=== PATIENT | female | born 1985 | race Caucasian/White ===

== ENCOUNTER 2021-06-24 10:28 | Emergency (ER) | payer BC, SELFPAY ==
[2021-06-24 10:40] VITALS: BP 101/62; PULSE 86; RESP 18; TEMP 36.7; O2SAT 99
--- NOTE | 2021-06-24 11:40 | ED.URI ---
HPI - URI/Sore Throat General Chief Complaint: Upper Respiratory Infection Stated Complaint: sinus issues Source: patient Mode of arrival: ambulatory Limitations: no limitations History of Present Illness HPI Narrative: Patient is a 36-year-old female who presents complaining of nasal congestion, headache and sore throat x1 day. Patient is 34 weeks . Patient reports taking Tylenol for headache without relief. She reports Covid vaccinated x2. She denies known exposure to Covid. She denies fever, chills or body aches. She denies chest pain, cough or shortness of breath. She denies all other complaints at this time. Related Data Home Medications Medication Instructions Recorded Confirmed aspirin [Adult Low Dose Aspirin] 81 mg PO DAILY 06/24/21 06/24/21 buspirone 7.5 mg PO BID 06/24/21 06/24/21 ferrous sulfate 325 mg PO DAILY 06/24/21 06/24/21 [id number] 1 tablet PO DAILY 06/24/21 06/24/21 [] Allergies Allergy/AdvReac Type Severity Reaction Status Date / Time No Known Allergies Allergy Verified 06/24/21 11:06 Review of Systems Review of Systems: CONSTITUTIONAL: Denies fever, chills, or sweats. EYES: Denies visual changes, redness, or discharge. ENT: Reports congestion and sore throat CARDIOVASCULAR: Denies chest pain, palpitations, or edema. RESPIRATORY: Denies cough or dyspnea. GASTROINTESTINAL: Denies abdominal pain, nausea, vomiting, or diarrhea. GENITOURINARY: Denies dysuria or hematuria. SKIN: Denies rash or itching. MUSCULOSKELETAL: Denies back pain, joint pain, or myalgia. NEUROLOGIC: Reports headache, denies numbness, dizziness, or weakness. PSYCHIATRIC: Denies anxiety or depression. REPLACED BY [facility] Social History Social History Smoking status: Never smoker Second hand tobacco smoke exposure: No Alcohol intake: current Substance use: never Substance use type: does not use Gender identity (if verbalized by the patient): Female Sexual Orientation (if Verbalized by the Patient): Straight or Heterosexual Comments At the time of signature, I have reviewed and agree with nursing past medical, surgical, social, and family history unless otherwise noted. Please see nursing chart for further information. There is no relevant family history pertinent to the presenting complaint. Exam Narrative: GENERAL: Well-appearing, well-nourished, and in no acute distress. HEAD: Normocephalic, atraumatic. EYES: EOMI. No redness or drainage. Conjunctiva are normal. ENT: Mucous membranes pink and moist. Nares mild erythema and fullness. No rhinorrhea. TMs full bilaterally. Throat mild erythema. Uvula midline. NECK: AROM. Supple. No lymphadenopathy. CHEST: No respiratory distress. HEART: Regular rate and rhythm. EXTREMITIES: Normal range of motion. SKIN: Warm, dry, no rash. NEURO: No focal deficits. Alert and oriented x3. Gait steady. PSYCH: Normal affect. No signs of depression or anxiety. Course Vital Signs Vital signs: Vital Signs Temperature 36.7 C 06/24/21 10:40 Pulse Rate 86 06/24/21 10:40 Respiratory Rate 18 06/24/21 10:40 Blood Pressure 101/62 06/24/21 10:40 Pulse Oximetry 99 06/24/21 10:40 Temperature 36.7 C 06/24/21 10:40 Pulse Rate 86 06/24/21 10:40 Respiratory Rate 18 06/24/21 10:40 Blood Pressure 101/62 06/24/21 10:40 Pulse Oximetry 99 06/24/21 10:40 Reviewed MDM - URI/Sore Throat MDM Narrative Medical decision making narrative: Rapid Covid negative. Discussed with patient signs and symptoms that warrant further testing and treatment. Discussed with patient most likely sinusitis. Also discussed congestion can be part of . Discussed safe [id number] medications to use while . Discussed use of Tylenol for headache. Patient agrees with plan of care. Patient is stable for discharge to home with outpatient follow-up as discussed. Differential Diagnosis D
== END 2021-06-24 11:51 | disposition home or self-care (01) ==
PROVIDERS: Emergency Provider Nurse Practitioner; PCP Family Medicine
DX: O26.893 Other specified pregnancy related conditions, third trimester (principal); J32.9 Chronic sinusitis, unspecified; Z3A.34 34 weeks gestation of pregnancy; Z79.82 Long term (current) use of aspirin
CPT/HCPCS: 87426; 99213; C9803; G0463

== ENCOUNTER 2021-08-01 06:41 | Inpatient (IN) | payer BC, SELFPAY ==
[2021-08-01] VITALS (130 sets, daily range): BP systolic 89–130; BP diastolic 29–89; PULSE 66–107; RESP 18–20; TEMP 36.7–37.3; O2SAT 97–100; BMI 29.0
[2021-08-01 07:37] LABS: Basophils Percent Auto 0.3 % (0.2-1.2); Eosinophils Absolute Auto 0.1 K/mm3 (0-0.3); Eosinophils Percent Auto 1.3 % (0-4.4); Hematocrit 37.1 % (37.0-47.0); Hemoglobin 12.3 g/dL (12.0-15.0); Immature Granulocyte Absolute 0.06 K/mm3 (0.00-0.031); Immature Granulocyte Percent A 0.8 % (0-0.5); Lymphocytes Absolute Auto 1.46 K/mm3 (0.9-3.2); Lymphocytes Percent Auto 18.9 % (18.3-44.2); Mean Corpuscular HGB Conc 33.2 g/dl (32-36); Mean Corpuscular Hemoglobin 30.1 pg (26-34); Mean Corpuscular Volume 90.9 fl (80-100); Mean Platelet Volume 11.9 fl (7.4-10.4); Monocytes Absolute Auto 0.4 K/mm3 (0.1-0.6); Monocytes Percent Auto 4.5 % (2.6-8.5); Neutrophils Absolute Auto 5.7 K/mm3 (1.3-6.7); Neutrophils Percent Auto 74.2 % (45.5-73.1); Platelet Count Result 160 k/mm3 (150-375); Red Blood Count 4.08 M/mm3 (4.2-5.4); Red Cell Distribution Width 13.4 % (11.5-14.5); White Blood Count 7.7 K/mm3 (4.5-10.0)
--- NOTE | 2021-08-01 07:39 | WPDOBADMIT ---
Obstetrics - Admit Note Admission Note: record reviewed. No pertinent additions to the history and/or any subsequent changes in the physical findings that are not consistent with the expected course of the were found. IOL 39 weeks gestation, vertex by bedside US Additions to the history and/or subsequent changes in the physical findings follow. None.
[2021-08-01] MEDS: LACTATED RINGERS 1,000 ML 125 ML IV CONT ×3 (07:40→12:56)
[2021-08-01] MEDS: OXYTOCIN 30 UNITS/NS 500 ML 30 UNITS/500 ML BAG IV CONT (07:41)
--- NOTE | 2021-08-01 07:49 | LDADM ---
This patient, Lore Quintanilla, was admitted to Labor/Delivery/Recovery 103 on 08/01/21 at 06:41. Plans for labor, pain management and were discussed with patient. Patient/family oriented to hospital policies and general routines including ID bracelet, bed and alarms, visiting hours, pain management, procedures, bathroom and other care routines, personal items, smoking policy, room service/diet and guest tray routines, infant security routines, and visiting hours. Patient/Family are encouraged to report perceived risks to care and to ask questions if they do not understand what they are told or what they should do. See OBIX for further documentation.
--- NOTE | 2021-08-01 11:59 | WPDANESEPP ---
Anes - Eval Pre Procedure Procedure: labor pain management Date/Time: 08/01/21 11:59 Surgeon: Grace Preop Diagnosis: pain during labor Pre Op Diagnosis: Induction of Labor Patient Data Age: 36 Gender: F Height: 1.6 m Weight: 74.2 kg Last Vital Signs Temp 99.2 F 08/01/21 11:30 Pulse 81 08/01/21 11:43 BP 123/67 08/01/21 11:43 Allergies Allergy/AdvReac Type Severity Reaction Status Date / Time No Known Allergies Allergy Verified 06/24/21 11:06 Home Medications Medication Instructions Recorded Confirmed Type aspirin [Adult Low Dose Aspirin] 81 mg PO DAILY 06/24/21 07/07/21 History buspirone 7.5 mg PO BID 06/24/21 07/07/21 History ferrous sulfate 325 mg PO DAILY 06/24/21 07/07/21 History [id number] 1 tablet PO DAILY 06/24/21 07/07/21 History [] fluoxetine 10 mg PO DAILY 07/07/21 07/07/21 History magnesium 1 tablet PO DAILY 08/01/21 08/01/21 History Laboratory Tests 08/01/21 08/01/21 08/01/21 07:22 07:22 07:22 WBC 7.7 K/mm3 K/mm3 (4.5-10.0) RBC 4.08 M/mm3 L M/mm3 (4.2-5.4) Hgb 12.3 g/dL g/dL (12.0-15.0) Hct 37.1 % % (37.0-47.0) MCV 90.9 fl fl (80-100) MCH 30.1 pg pg (26-34) MCHC 33.2 g/dl g/dl (32-36) RDW 13.4 % % (11.5-14.5) Plt Count 160 k/mm3 k/mm3 (150-375) MPV 11.9 fl H fl (7.4-10.4) Immature Gran % (Auto) 0.8 % H % (0-0.5) Neut % (Auto) 74.2 % H % (45.5-73.1) Lymph % (Auto) 18.9 % % (18.3-44.2) [place] % (Auto) 4.5 % % (2.6-8.5) Eos % (Auto) 1.3 % % (0-4.4) Baso % (Auto) 0.3 % % (0.2-1.2) Lymph # (Auto) 1.46 K/mm3 K/mm3 (0.9-3.2) [place] # (Auto) 0.4 K/mm3 K/mm3 (0.1-0.6) Eos # (Auto) 0.1 K/mm3 K/mm3 (0-0.3) Baso # (Auto) 0.0 K/mm3 K/mm3 (0.0-0.1) Abs Immat Gran (auto) 0.06 K/mm3 H K/mm3 (0.00-0.031) Absolute Neuts (auto) 5.7 K/mm3 K/mm3 (1.3-6.7) Absolute Nucleated RBC 0.0 K/mm3 K/mm3 (0.0-0.012) Nucleated RBC % 0.0 % % (0.0-0.2) RPR Pending Blood Type B Positive Antibody Screen Negative : gestational age (edc 08/07/21) Patient hx anesthesia problems: none Family hx anesthesia problems: none Results Review: All pre-operative results and documents have been reviewed as part of the pre-operative evaluation. [facility] Past Medical History Medical History Pain during labor Family History Family History Other No pertinent family history Social History Social History Smoking status: Never smoker Second hand tobacco smoke exposure: No Alcohol intake: current Substance use: never Substance use type: does not use Gender identity (if verbalized by the patient): Female Sexual Orientation (if Verbalized by the Patient): Straight or Heterosexual Spiritual care concerns: No Exam Day of Procedure 08/01/21 11:59
[2021-08-01] MEDS: ONDANSETRON INJ 4 MG/2 ML VIAL IV PUSH (14:05)
--- NOTE | 2021-08-01 18:26 | PM.OBPRVD ---
OB - Delivery Note Procedure Delivery date: 08/01/21 Procedure: vaginal delivery Intrapartal events: None Induction method: AROM and per pitocin protocol Delivery monitor: external FHT and external uterine Route of delivery: Laceration Description: None Delivery repair: vicryl Specimen: No Quantitative Blood Loss (ml): 215 Anesthesia type: Epidural Disposition: floor [place] Baby Date of : 08/01/21 Time of : 18:11 Weeks of gestation at delivery: 39 Infant gender: Male Weight (pounds): 7 Weight (ounces): 14 presentation: vertex position: Left Occiput Anterior Placenta delivery description: Spontaneous cord vessel description: 3 Vessels, Clamped/Cut, Around Body x1 and Delayed Cord Clamping score one minute: 7 score five minutes: 9 Narrative: mother and baby skin to skin in stable condition
[2021-08-01] MEDS: OXYTOCIN 30 UNITS/NS 500 ML 30 UNITS/500 ML BAG 125 UNITS IV CONT (18:44)
[2021-08-01] MEDS: IBUPROFEN 600 MG TABLET PO (18:45)
[2021-08-01] MEDS: BENZOCAINE 20% AER SPR (*SP) 56 GM CAN 1 SPRAY TOPICAL (18:45)
[2021-08-01] MEDS: WITCH HAZEL 40 PADS 1 PAD TOPICAL (18:45)
--- NOTE | 2021-08-01 20:43 | OBPPTRN ---
Patient transferred to post room #288 via wheelchair. Support person present. Oriented to unit, room, information board, rooming in, admission packet and security measures. Patient verbalizes understanding.
[2021-08-02 00:50] VITALS: BP 103/63; PULSE 75; RESP 18; TEMP 36.6
[2021-08-02] MEDS: IBUPROFEN 600 MG TABLET PO ×4 (00:52→19:46)
[2021-08-02] MEDS: ACETAMINOPHEN 325 MG TABLET 650 MG PO ×4 (00:53→19:47)
[2021-08-02 04:15] VITALS: BP 122/74; PULSE 67; RESP 18; TEMP 36.6
[2021-08-02 06:57] LABS: Rapid Plasma Reagin Non-Reactive (NonReactive)
[2021-08-02] MEDS: DOCUSATE SODIUM 100 MG CAPSULE PO (07:48)
--- NOTE | 2021-08-02 07:52 | P.PNOB_ITS ---
OB - PN: Subj Subjective Date/time seen: 08/02/21 07:52 Patient comments: no complaints baby status: doing well OB - PN: Obj Data Labs CBC & Chem 7: 08/02/21 03:37 Labs: Laboratory Results - last 24 hr 08/01/21 08/01/21 08/02/21 07:22 07:22 03:37 Hgb 10.0 L Hct 31.0 L RPR Non-reactive Blood Type B Positive Antibody Screen Negative OB - PN A/P Plan day: 1 Plan: routine care Time Spent With Patient Time: Total time spent is greater than 50% in coordination of care (as documented) at patient's floor/unit and/or counseling patient: Time with patient: less than 15 minutes Review of Systems Review of Systems: All systems reviewed & are unremarkable except as noted in HPI and below Exam Narrative: Fundus firm and vaginal flow controlled. No lower ext redness, wa rmth, or edema. Negative homans. Const: General: comfortable Chest: Breast/axilla inspection: normal inspection of the breasts Resp: Effort & Inspection: normal respiratory effort Cardio: Rate: regular rate GI: GI Palp: Yes Soft to palpation Psych: Appearance: grossly normal Affect: normal affect Attitude: cooperative Thought content: Yes Normal thought content present Judgement: Good judgement present (Psych)
[2021-08-02 09:10] VITALS: BP 111/65; PULSE 78; RESP 18; TEMP 36.8; O2SAT 100
[2021-08-02 13:00] VITALS: BP 123/79; PULSE 72; RESP 18; TEMP 37.2; O2SAT 99
--- NOTE | 2021-08-02 15:01 | WPDANLDPN2 ---
Anes-Prog Note L&D Date/Time: 08/02/21 15:01 Comfortable throughout: labor and delivery Neuraxial method: epidural Epidural/Spinal procedure site: clean & non-tender Neuro status: Neuro function grossly intact. Cardiovascular status: normal Respiratory status: normal Airway patency: baseline Mental status: baseline Post-Op hydration status: normal Vital Signs: Last Vital Signs Temp 37.2 C 08/02/21 13:00 Pulse 72 08/02/21 13:00 Resp 18 08/02/21 13:00 BP 123/79 08/02/21 13:00 Pulse Ox 99 08/02/21 13:00 Pain score (VAS): 10/15 I/O: Intake & Output 08/01/21 08/02/21 08/02/21 23:59 07:59 15:59 Intake Total 1900 500 240 Output Total 751 Balance 1149 500 240 Post-procedural complaints: none Patient feedback: Patient satisfied with anesthetic care.
[2021-08-02 17:00] VITALS: BP 121/61; PULSE 76; RESP 18; TEMP 37.1; O2SAT 98
[2021-08-02 19:40] VITALS: BP 113/69; PULSE 75; RESP 16; TEMP 36.9; O2SAT 97
[2021-08-02] MEDS: WITCH HAZEL 40 PADS 1 PAD TOPICAL (21:22)
[2021-08-03] MEDS: ACETAMINOPHEN 325 MG TABLET 650 MG PO (04:45)
[2021-08-03] MEDS: IBUPROFEN 600 MG TABLET PO ×2 (04:46→11:25)
--- NOTE | 2021-08-03 07:35 | PM.OBPNVD ---
OB - PN: Subj Subjective Date/time seen: 08/03/21 07:35 Patient comments: no complaints baby status: doing well OB - PN: Obj Data Labs CBC & Chem 7: 08/02/21 03:37 OB - PN A/P Plan day: 2 Plan: routine care and discharge home Time Spent With Patient Time: Total time spent is greater than 50% in coordination of care (as documented) at patient's floor/unit and/or counseling patient: Review of Systems Review of Systems: All systems reviewed & are unremarkable except as noted in HPI and below Exam Const: General: cooperative Nutritional Appearance: average body habitus Psych: Thought process: Normal thought process present Thought content: Yes Normal thought content present Insight: Good insight present (Psych)
--- NOTE | 2021-08-03 07:38 | P.DS_ITS ---
DS: Admitting Diagnosis Discharge Date 08/03/21 Admitting Diagnosis IOL OB - DS: Summary OB Procedures : None OB Procedures Intrapartum: Spontaneous Vag Delivery OB Procedures: : None Time Spent with Patient Time attestation: Total time spent providing and/or coordinating discharge services: Discharge Plan Discharge Attending physician on discharge: Suzanne Edwards Discharging Clinician: Rosalba Ruiz Patient Disposition: Home, Self-Care Activity: pelvic rest Diet: regular Patient Instructions: Antibiotic Form Stand Alone Forms: General Discharge Information Follow-up/Referrals: Rosalba Ruiz CNM [Certified Nurse Computer Technician] - 4 Weeks Discharge Medications: Continued 1 mg Tablet 1 tablet PO DAILY RF: 0 buspirone 15 mg tablet 7.5 mg PO BID RF: 0 fluoxetine 10 mg Tablet 10 mg PO DAILY RF: 0 Discontinued Adult Low Dose Aspirin 81 mg Tablet 81 mg PO DAILY RF: 0 ferrous sulfate 325 mg (65 mg iron) Tablet,Delayed Release (Dr/Ec) 325 mg PO DAILY RF: 0 magnesium Tablet 1 tablet PO DAILY RF: 0 Date of admission: 08/01/21 06:41 Primary Care Provider: Skyler Moncada Admitting Provider: Suzanne Edwards Attending physician on admission: Suzanne Edwards Condition: Stable
[2021-08-03 08:15] VITALS: BP 125/80; PULSE 65; RESP 18; TEMP 37.4; O2SAT 98
[2021-08-03] MEDS: DOCUSATE SODIUM 100 MG CAPSULE PO (11:25)
[2021-08-06 11:21] VITALS: BP 111/72; PULSE 75; RESP 20; TEMP 37; O2SAT 100
== END 2021-08-03 12:40 | disposition home or self-care (01) | DRG 807 ==
LOC: ANHLDR 06:45 → ANHOB2 20:53
PROVIDERS: Advanced Practice Midwife; Admitting Provider Obstetrics & Gynecology; PCP Family Medicine; Visit Provider Obstetrics & Gynecology
DX: O13.4 Gestational [pregnancy-induced] hypertension without significant proteinuria, complicating childbirth (principal); Z37.0 Single live birth; O69.2XX0 Labor and delivery complicated by other cord entanglement, with compression, not applicable or unspecified; O76 Abnormality in fetal heart rate and rhythm complicating labor and delivery; Z3A.39 39 weeks gestation of pregnancy
CPT/HCPCS: 36415; 85014; 85018; 85025; 86592; 86850; 86900; 86901; A9270; J2405; J2590; J2795; J7120

== ENCOUNTER 2022-02-08 00:36 | Day surgery (SDC) | payer BC, SELFPAY ==
[2022-01-23 10:17] VITALS: BMI 25.4
[2022-02-08 07:44] VITALS: BP 102/73; PULSE 78; RESP 17; TEMP 36.3; O2SAT 100
[2022-02-08] MEDS: LACTATED RINGERS 1,000 ML 150 ML IV CONT (07:55)
--- NOTE | 2022-02-08 08:10 | WPDANESEPPF ---
Anes - Initial Pre Proc Eval Procedure: Operation Date: 02/08/22 08:30 Proposed Procedures p Colonoscopy - Holden Castaneda MD Date/Time: 02/08/22 08:10 Surgeon: Holden Castaneda MD Pre Op Diagnosis: rectal bleed Patient Data Age: 36 Gender: F Height: 1.6 m Weight: 65.3 kg Last Vital Signs Temp 36.3 C L 02/08/22 07:44 Pulse 78 02/08/22 07:44 Resp 17 02/08/22 07:44 BP 102/73 02/08/22 07:44 Pulse Ox 100 02/08/22 07:44 Allergies Allergy/AdvReac Type Severity Reaction Status Date / Time No Known Allergies Allergy Verified 02/08/22 07:43 Home Medications Medication Instructions Recorded Confirmed Type buspirone 7.5 mg PO BID 06/24/21 01/23/22 History fluoxetine 40 mg PO DAILY 07/07/21 01/23/22 History sulfamethoxazole-trimethoprim 1 tablet PO DAILY 01/23/22 01/23/22 History Patient hx anesthesia problems: none Family hx anesthesia problems: none Results Review: All pre-operative results and documents have been reviewed as part of the pre-operative evaluation. PMFSH Past Medical History Medical History Anxiety Depression Family History Family History Other No pertinent family history Social History Social History Smoking status: Never smoker Second hand tobacco smoke exposure: No Alcohol intake: current Substance use: never Substance use type: does not use Living arrangements: with family Gender identity (if verbalized by the patient): Female Sexual Orientation (if Verbalized by the Patient): Straight or Heterosexual Spiritual care concerns: No Anes - Eval Final PreProcedure Day of Procedure 02/08/22 08:10 Patient weight: normal Heart: regular rate and rhythm Lungs: clear to auscultation Airway: Mallampati scale class II Neurological: alert and oriented Last oral intake: >/= 8 hours ASA classification: II Emergent: no Anesthetic plan: proceed Anesthesia type and monitoring: general GIVS and standard monitoring Results Review: All pre-operative results and documents have been reviewed as part of the pre-operative evaluation. Informed Consent: The patient's anesthetic plan and its attendant risks and benefits were discussed with the patient/family/POA. Questions were solicited and answers provided to the satisfaction of the patient/family/POA.
--- NOTE | 2022-02-08 08:15 | PM.HPGS ---
History of Present Illness History of Present Illness Consent: Risks, benefits, and alternatives have been discussed and questions answered. Patient agrees to proceed with procedure. Chief complaint: rectal bleed Narrative: Lore Quintanilla is a 36 year old female with intermittent rectal bleeding, never had colonoscopy Review of Systems Constitutional: Constitutional: Denies headache(s) and Denies weakness Eyes: Eyes: Denies blurry vision ENT: Reports Normal hearing present, Denies headache(s) and Denies neck pain Cardiovascular: Cardiovascular: Denies chest pain and Denies dyspnea Respiratory: Respiratory: Denies dyspnea Gastrointestinal: Gastrointestinal: Reports no additional gastrointestinal complaints Genitourinary: Genitourinary: Denies dysuria Musculoskeletal: Musculoskeletal: Denies neck pain Integumentary/Breasts: Skin/Breast: Denies dry skin Neurologic: Reports Normal hearing present, Denies headache(s) and Denies weakness Psychiatric: Psychiatric: Denies anxiety Endocrine: Endocrine: Denies change in body appearance Hematologic/Lymphatic: Hematologic/Lymphatic: Denies easy bleeding Allergic/Immunologic: Allergic/Immunologic: Denies urticaria PMFSH Past Medical History Medical History (Updated 02/08/22 @ 08:15 by Holden Castaneda MD) Anxiety Blood in stool Depression Family History Family History Other No pertinent family history Social History Social History Smoking status: Never smoker Second hand tobacco smoke exposure: No Alcohol intake: current Substance use: never Substance use type: does not use Living arrangements: with family Gender identity (if verbalized by the patient): Female Sexual Orientation (if Verbalized by the Patient): Straight or Heterosexual Spiritual care concerns: No Meds Home Medications and Allergies Home Medications Medication Instructions Recorded Confirmed Type buspirone 7.5 mg PO BID 06/24/21 01/23/22 History fluoxetine 40 mg PO DAILY 07/07/21 01/23/22 History sulfamethoxazole-trimethoprim 1 tablet PO DAILY 01/23/22 01/23/22 History Allergies Allergy/AdvReac Type Severity Reaction Status Date / Time No Known Allergies Allergy Verified 02/08/22 07:43 Vital Signs Vital Signs - 24 hr 02/08/22 07:44 Temperature 97.3 F L Pulse Rate 78 Respiratory Rate 17 Blood Pressure 102/73 Pulse Oximetry 100 Exam Const: General: comfortable and no acute distress HENMT: General nose exam: Normal nares present Eyes: General: appearance normal, both eyes and all related structures Neck: Neck: no JVD Resp: Auscultation: clear to auscultation bilaterally Cardio: Rate: regular rate Rhythm: regular rhythm GI: Inspection: non-distended GI Palp: Yes Soft to palpation Skin: General skin exam: normal color Neuro: General: gait normal Speech: normal speech Extrem: General: normal to inspection Psych: Mental Status: mental status grossly normal Assessment and Plan Assessment and plan (1) Blood in stool: Code(s): K92.1 - Melena Status: Acute Assessment and Plan: probably perianal, will proceed with colonoscopy
[2022-02-08 08:30] VITALS: BP 95/55; PULSE 65; RESP 15; O2SAT 99
[2022-02-08 08:40] VITALS: BP 117/65; PULSE 64; RESP 15; O2SAT 100
[2022-02-08 08:50] VITALS: BP 109/73; PULSE 66; RESP 19; O2SAT 99
== END 2022-02-08 09:03 | disposition home or self-care (01) ==
PROVIDERS: PCP Family Medicine; Visit Provider Internal Medicine Gastroenterology
PROC: 0DJD8ZZ Inspection of Lower Intestinal Tract, Via Natural or Artificial Opening Endoscopic (ICD-10-PCS; CPT 45378; principal; 2022-02-08 08:30)
DX: K62.5 Hemorrhage of anus and rectum (principal); K64.8 Other hemorrhoids; F41.9 Anxiety disorder, unspecified; F32.A Depression, unspecified
CPT/HCPCS: 45378; J2704; J7120

== ENCOUNTER 2022-11-13 10:38 | Emergency (ER) | payer BC, SELFPAY ==
--- NOTE | ~2022-11-13 | XR_ITS ---
EXAMINATION: [id number] DATE: 11/13/2022 11:07 INDICATION: Left lateral rib pain. Cough. TECHNIQUE: A frontal view of the chest and 2 views on 3 radiographs of the left ribs were obtained. COMPARISON: None. FINDINGS: There are airspace opacities in left lower lobe. No pleural effusion or pneumothorax. The h eart size is normal. IMPRESSION: 1. Airspace opacities in left lower lobe, consistent with pneumonia. 2. No rib fracture. Reviewed, dictated and finalized at location A. [employer] [employer]
[2022-11-13 10:48] VITALS: BP 123/59; PULSE 108; RESP 18; TEMP 37.1; O2SAT 100
--- NOTE | 2022-11-13 10:58 | ED.URI ---
HPI - URI/Sore Throat General Chief Complaint: Upper Respiratory Infection Stated Complaint: cough,bodyache Time Seen by Provider: 11/13/22 10:50 Source: patient and RN notes reviewed Mode of arrival: ambulatory Limitations: no limitations History of Present Illness HPI Narrative: 37-year-old female presented for complaint of left wrist pain since last night, Following cough, body aches, and headache over the last 3 days. denies shortness of breath, wheezing, nausea, vomiting, diarrhea, fevers or chills. She denies known sick contacts. She states the pain to the ribs is severe causing her to catch her breath. Worse with taking deep breaths. She is taking Tylenol and ibuprofen for symptoms, left ibuprofen today at 4:00 a.m. elicited complaint: cough Related Data Home Medications Medication Instructions Recorded Confirmed fluoxetine 10 mg tablet 40 mg PO DAILY 07/07/21 11/13/22 drospirenone (contraceptive) 4 mg 1 tablet PO DAILY 11/13/22 11/13/22 (28) tablet (Slynd) Allergies Allergy/AdvReac Type Severity Reaction Status Date / Time No Known Allergies Allergy Verified 11/13/22 10:47 Review of Systems Review of Systems: CONSTITUTIONAL: Endorses malaise, denies chills, sweats, fever EYES: Denies visual changes, redness, or discharge ENT: denies rhinorrhea, congestion, sinus pain, otalgia, sore throat CARDIOVASCULAR: Denies chest pain, palpitations, edema RESPIRATORY: Denies dyspnea GASTROINTESTINAL: Denies abdominal pain, nausea, vomiting, diarrhea SKIN: Denies rash or itching MUSCULOSKELETAL: Endorses myalgia NEUROLOGIC: endorses headache PMFSH Past Medical History Medical History (Updated 11/13/22 @ 11:40 by Karen Riggs APRN) Anxiety Blood in stool Depression Family History Family History Other No pertinent family history Social History Social History Smoking status: Never smoker Second hand tobacco smoke exposure: No Alcohol intake: current Substance use: never Substance use type: does not use Living arrangements: with family Occupation/Education: occupation Gender identity (if verbalized by the patient): Female Sexual Orientation (if Verbalized by the Patient): Straight or Heterosexual Spiritual care concerns: No Exam Narrative: GENERAL: Ill-appearing, nontoxic EYES: PERRLA, conjunctivae clear ENT: Mucous membranes moist. TM pearly cortez with dull light reflex bilaterally; no tragal tenderness. Oropharynx erythematous without lesions or exudate, no drooling, no hoarseness, no trismus, uvula midline. No tripod positioning, muffled voice, soft palate or pharyngeal wall bulging NECK: Supple. No lymphadenopathy CHEST: Clear to auscultation, breath sounds equal. No wheezing, rhonchi, rales, or stridor. No respiratory distress, Patient reports difficulty making full sentences due to the left rib pain; left Lower lateral ribs tender with palpation HEART: Regular rate and rhythm. No murmur heard. SKIN: Warm, dry, no rash or bruising to left ribs NEURO: Alert and oriented x3. Course Course Emergency Course: Patient is aware of diagnosis, understands and agrees to treatment plan. Anticipatory guidance given. Patient agrees to follow-up as directed and is aware of reasons to seek care at the emergency department. Portions of this record may have been created with voice recognition software Level of Care: Express Care Visit Vital Signs Vital signs: Vital Signs Temperature 98.8 F 11/13/22 10:48 Pulse Rate 108 H 11/13/22 10:48 Respiratory Rate 18 11/13/22 10:48 Blood Pressure 123/59 L 11/13/22 10:48 Pulse Oximetry 100 11/13/22 10:48 Oxygen Delivery Room Air 11/13/22 10:48 Temperature 98.8 F 11/13/22 10:48 Pulse Rate 108 H 11/13/22 10:48 Respiratory Rate 18 11/13/22 10:48 Blood Pressure 123/59 L 11/13/22 10:48
[2022-11-13] MEDS: methylPREDNISolone SOD SUCC 125 MG VIAL IM (11:43)
== END 2022-11-13 11:51 | disposition home or self-care (01) ==
PROVIDERS: Emergency Provider Nurse Practitioner Family; PCP Family Medicine
DX: J18.9 Pneumonia, unspecified organism (principal); Z20.822 Contact with and (suspected) exposure to COVID-19
CPT/HCPCS: 71101; 87426; 87804; 96372; 99213; C9803; G0463; J2930